=== PATIENT | female | born 1990 | race American Indian/Alaskan Native ===

== ENCOUNTER 2016-11-03 17:57 | Emergency (ER) | payer SELFPAY ==
[2016-11-03 19:57] LABS: Hematocrit 39.9 % (30.3-42.9); Hemoglobin 13.1 gm/dl (10.1-14.3); Mean Corpuscular HGB Conc 33 % (30-34); Mean Corpuscular Hemoglobin 32 pg (28-32); Mean Corpuscular Volume 96 fl (79-97); Platelet Count 192 K/mm3 (140-440); Red Blood Count 4.16 M/mm3 (3.65-5.03); Red Cell Distribution Width 13.7 % (13.2-15.2); White Blood Count 9.5 K/mm3 (4.5-11.0)
--- NOTE | 2016-11-04 02:15 | Emergency Department Report ---
HPI - General Chief Complaint: Wound/Laceration Time Seen by Provider: 11/04/16 01:52 - HPI HPI: 26-year-old female presents today with a possible infection of keloid to her upper chest. Patient states that it's been hurting since this morning. Describes her pain as 6 out of 10 sharp, throbbing pain that comes and goes. Patient states that she's had this keloid since 2008 and it has been infected two-year 4 times. She states this does feel similar to her previous infections. Tried Advil with some relief. Positive for warmth to touch. Denies fever, chills, nausea, vomiting, chest pain, shortness of breath, abdominal pain. ED Past Medical Hx - Past Medical History Previous Medical History?: Yes Additional medical history: Keloids - Surgical History Past Surgical History?: Yes Additional Surgical History: keloid removal - Social History Smoking Status: Never Smoker Substance Use Type: None - Medications Home Medications: Home Medications Medication Instructions Recorded Confirmed Last Taken Type Fexofenadine/Pseudoephedrine 1 each PO BID PRN #20 tab.er.12h 08/14/15 Unknown Rx [Moira-D 12 Hour Tablet] Cephalexin [Keflex] 500 mg PO QID #20 cap 11/04/16 Unknown Rx Sulfamethoxazole/Trimethoprim 1 each PO BID #10 tablet 11/04/16 Unknown Rx [Bactrim DS TAB] ED Review of Systems ROS: Stated complaint: CHEST PAIN Other details as noted in HPI Constitutional: denies: chills, fever, malaise Eyes: denies: eye pain ENT: denies: ear pain, throat pain, congestion Respiratory: denies: cough, shortness of breath, wheezing Cardiovascular: denies: chest pain, palpitations Endocrine: no symptoms reported Gastrointestinal: denies: abdominal pain, nausea, vomiting Neurological: denies: headache, weakness Physical Exam - Physical Exam Vital Signs: Vital Signs 11/03/16 18:06 Temperature 98.4 F Pulse Rate 82 Respiratory 18 Rate Blood Pressure 148/86 O2 Sat by Pulse 100 Oximetry Physical Exam: GENERAL: The patient is well-developed and well-nourished. Patient is in NAD. HEAD: Normocephalic. Atraumatic. CHEST/LUNGS: Clear to auscultation throughout. A 6 cm in diameter keloid noted over the upper mid anterior chest wall. Warm to touch and tenderness to palpation noted over the upper mid keloid. HEART/CARDIOVASCULAR: Regular rate and rhythm. No murmurs, rubs or gallops. ABDOMEN: Abdomen is soft, nontender. Bowel sounds normoactive. No guarding or rebound tenderness. EXTREMITIES: Peripheral pulses intact. Capillary refill less than 2 seconds. NEURO: Alert and oriented x 3. Normal gait. ED Course Vital Signs 11/03/16 18:06 Temperature 98.4 F Pulse Rate 82 Respiratory 18 Rate Blood Pressure 148/86 O2 Sat by Pulse 100 Oximetry ED Medical Decision Making - Lab Data Result diagrams: 11/03/16 18:40 Vital Signs 11/03/16 18:06 Temperature 98.4 F Pulse Rate 82 Respiratory 18 Rate Blood Pressure 148/86 O2 Sat by Pulse 100 Oximetry Lab Results 11/03/16 11/03/16 Range/Units 18:40 18:40 WBC 9.5 (4.5-11.0) K/mm3 RBC 4.16 (3.65-5.03) M/mm3 Hgb 13.1 (10.1-14.3) gm/dl Hct 39.9 (30.3-42.9) % MCV 96 (79-97) fl MCH 32 (28-32) pg MCHC 33 (30-34) % RDW 13.7 (13.2-15.2) % Plt Count 192 (140-440) K/mm3 HCG, Qual Negative (Negative) - Medical Decision Making 26-year-old female presents today with a possible keloid infection since this morning. Patient is in no acute distress at this time. She will be discharged home and is encouraged to follow up with a primary care provider. She will be sent home on Keflex and Bactrim and is encouraged to return to the emergency room for any worsening symptoms. Critical care attestation.: If time is entered above; I have spent that time in minutes in the direct care of this critically ill patient, excluding procedure time. ED Disposition Clinical Impression: Keloid Cellulitis Qualifiers: Site of cellulitis: trunk Site of cellulitis of trunk: chest wall Qualified Code(s): L03.313 - Cellulitis of chest wall Disposition: DISCHARGED TO HOME OR SELFCARE Is pt being admited?: No Does the pt Need Aspirin: No Condition: Stable Instructions: Cellulitis (ED) Additional Instructions: Follow up with primary care provider. Return to the emergency department if symptoms worsen. Prescriptions: Cephalexin [Keflex] 500 mg PO QID #20 cap Sulfamethoxazole/Trimethoprim [Bactrim DS TAB] 1 each PO BID #10 tablet Referrals: PRIMARY CARE, [Primary Care Provider] - 3-5 Days [facility] [Outside] - 3-5 Days Forms: Work/School Release Form(ED) Time of Disposition: 02:18
[2016-11-04 02:33] VITALS: BP 124/76
== END 2016-11-04 02:36 | disposition home or self-care (01) ==
LOC: ED 17:57
DX: L03.313 Cellulitis of chest wall (principal); L91.0 Hypertrophic scar; Z98.890 Other specified postprocedural states
CPT/HCPCS: 36415; 84703; 85027; 99283

== ENCOUNTER 2017-07-23 22:49 | Emergency (ER) | payer SELFPAY ==
[2017-07-23 23:00] VITALS: BP 133/82
[2017-07-24] MEDS ORDERED: XYLOCAINE 1% 20 mL INFILTRATI ONE (02:35)
[2017-07-24] MEDS ORDERED: NORCO 7.5/325 PO ONE (02:35)
[2017-07-24] MEDS ORDERED: TRIPLE ANTIBIOTIC TP ONE (04:20)
--- NOTE | 2017-07-24 04:28 | Emergency Department Report ---
Abscess Boil HPI - HPI Chief Complaint: Skin/Abscess/Foreign Body Stated Complaint: INFECTION Duration: 2 Days Location: Chest Severity: Mild History: Yes Pain, Yes Purulent Drainage, Yes Previous History, No Fever, No Numbness, No Foreign Body, No Insect Bite HPI: 27 year old female presents to ED with abscess on upper chest x2 days. patient is stable, neurologically intact and in no acute distress. patient states she has had abscess in this area about 1-2 months ago. Home Medications: Previous Rx's Medication Instructions Recorded Last Taken Type Fexofenadine/Pseudoephedrine 1 each PO BID PRN #20 tab.er.12h 08/14/15 Unknown Rx [Moira-D 12 Hour Tablet] Cephalexin [Keflex] 500 mg PO QID #20 cap 11/04/16 Unknown Rx Sulfamethoxazole/Trimethoprim 1 each PO BID #10 tablet 11/04/16 Unknown Rx [Bactrim DS TAB] Cephalexin [Keflex] 500 mg PO Q12HR #14 cap 07/24/17 Unknown Rx traMADol [Ultram 50 MG tab] 50 mg PO Q8H #6 tablet 07/24/17 Unknown Rx Allergies/Adverse Reactions: Allergies Allergy/AdvReac Type Severity Reaction Status Date / Time No Known Allergies Allergy Verified 04/23/15 18:03 ED Review of Systems ROS: Stated complaint: INFECTION Other details as noted in HPI Constitutional: denies: chills, fever Eyes: denies: eye pain, eye discharge, vision change ENT: denies: ear pain, throat pain Respiratory: denies: cough, shortness of breath, wheezing Cardiovascular: denies: chest pain, palpitations Endocrine: no symptoms reported Gastrointestinal: denies: abdominal pain, nausea, diarrhea Genitourinary: denies: urgency, dysuria, discharge Musculoskeletal: denies: back pain, joint swelling, arthralgia Skin: other (abscess). denies: rash, lesions Neurological: denies: headache, weakness, numbness, paresthesias, confusion, abnormal gait, vertigo Psychiatric: denies: anxiety, depression Hematological/Lymphatic: denies: easy bleeding, easy bruising ED Past Medical Hx - Past Medical History Additional medical history: Keloids - Surgical History Additional Surgical History: keloid removal - Social History Smoking Status: Never Smoker Substance Use Type: None - Medications Home Medications: Home Medications Medication Instructions Recorded Confirmed Last Taken Type Fexofenadine/Pseudoephedrine 1 each PO BID PRN #20 tab.er.12h 08/14/15 Unknown Rx [Moira-D 12 Hour Tablet] Cephalexin [Keflex] 500 mg PO QID #20 cap 11/04/16 Unknown Rx Sulfamethoxazole/Trimethoprim 1 each PO BID #10 tablet 11/04/16 Unknown Rx [Bactrim DS TAB] Cephalexin [Keflex] 500 mg PO Q12HR #14 cap 07/24/17 Unknown Rx traMADol [Ultram 50 MG tab] 50 mg PO Q8H #6 tablet 07/24/17 Unknown Rx ED Abscess Boil Physical Exam - Exam General: Vital signs noted. No distress. Alert and acting appropriately. Front/Back of Body, Lg (Color): 1 - abscess Size: 2 cm Exam: Yes Tenderness, Yes Fluctuance, Yes Normal Neurologic Exam, Yes Normal Circulation, No Surrounding Cellulites/Erythema, No Lymphangitis, No Crepitation , No Heart Murmur Exam: abscess present on upper chest/mid sternal I & D Note - I & D Note I & D Note: area prepped with betadine. 2% lidocaine used for numbing agent. moderate amount of purulent drainage obtained. patient tolerated procedure well. bleeding well controlled. ED Course Vital Signs 07/23/17 22:56 Temperature 98.2 F Pulse Rate 72 Respiratory 18 Rate Blood Pressure 133/82 O2 Sat by Pulse 100 Oximetry Critical care attestation.: If time is entered above; I have spent that time in minutes in the direct care of this critically ill patient, excluding procedure time. ED Medical Decision Making - Medical Decision Making 27 year old female presents to ED with upper chest/mid sternal abscess. patient tolerated I&D well. patient will be given PO antibiotics and agrees and understands to return to ED within 2-3 days for recheck. patient states LMP was 07/21/2017. ED Disposition Clinical Impression: Abscess Disposition: DC-01 TO HOME OR SELFCARE Is pt being admited?: No Does the pt Need Aspirin: No Condition: Stable Instructions: Incision and Drainage (ED) Additional Instructions: Please return to ED or urgent care within 2-3 days for recheck. Prescriptions: Cephalexin [Keflex] 500 mg PO Q12HR #14 cap traMADol [Ultram 50 MG tab] 50 mg PO Q8H #6 tablet Referrals: PRIMARY CARE,MD [Primary Care Provider] - 2-3 Days Forms: Work/School Release Form(ED)
== END 2017-07-24 04:45 | disposition home or self-care (01) ==
LOC: ED 22:49
DX: L02.213 Cutaneous abscess of chest wall (principal)
CPT/HCPCS: A6250